=== PATIENT | male | born 1980 | race Caucasian/White ===

== ENCOUNTER 2017-11-13 10:28 | Emergency (ER) | payer OTHER ==
[~2017-11-13] VITALS: Ht 177.8 cm; Wt 99.8 kg
[2017-11-13 11:51] VITALS: BP 127/83
== END 2017-11-13 11:52 | disposition home or self-care (01) ==
LOC: M.ERS 10:28
DX: S71.112A Laceration without foreign body, left thigh, initial encounter (principal); F17.210 Nicotine dependence, cigarettes, uncomplicated; W45.8XXA Other foreign body or object entering through skin, initial encounter; Y93.89 Activity, other specified; Y92.89 Other specified places as the place of occurrence of the external cause; Y99.8 Other external cause status

== ENCOUNTER 2017-11-30 08:03 | Emergency (ER) | payer OTHER ==
[~2017-11-30] VITALS: Ht 177.8 cm; Wt 99.8 kg
[2017-11-30] MEDS ORDERED: KEFLEX250 MG PO (09:28)
[2017-11-30 09:33] VITALS: BP 138/70
== END 2017-11-30 09:33 | disposition home or self-care (01) ==
LOC: M.ERS 08:03
DX: S71.112D Laceration without foreign body, left thigh, subsequent encounter (principal); X58.XXXD Exposure to other specified factors, subsequent encounter

== ENCOUNTER 2020-11-26 09:41 | Emergency (ER) | payer OTHER ==
[~2020-11-26] VITALS: Ht 172.7 cm; Wt 83.9 kg
[~2020-11-26 09:41] MED LIST: KEFLEX250 MG PO
[2020-11-26] MEDS ORDERED: FLEXERIL PO (11:14)
[2020-11-26 11:20] VITALS: BP 131/70
== END 2020-11-26 11:37 | disposition home or self-care (01) ==
LOC: M.ERS 09:41
DX: U07.1 COVID-19 (principal); M79.10 Myalgia, unspecified site; R09.81 Nasal congestion; Z98.890 Other specified postprocedural states